=== PATIENT | female | born 1980 | race Two or more races ===

== ENCOUNTER 2022-07-03 05:42 | Inpatient (IN) | payer OTHER ==
[~2022-07-03] VITALS: Ht 162.6 cm; Wt 81.6 kg
[2022-07-03] MEDS ORDERED: PRENATAL TABLE1 EAC1 (08:03)
[2022-07-03] MEDS ORDERED: FOLIC ACID0.8 M1 (08:04)
[2022-07-03] MEDS ORDERED: IRON236 MG (08:04)
[2022-07-03] MEDS ORDERED: MONTELUKAST SOD10 MG (14:33)
[2022-07-03] MEDS ORDERED: PRENATAL VITAM1 EAC7 (14:33)
== END 2022-07-15 16:08 | disposition home or self-care (01) | DRG 768 ==
LOC: LDR 05:42 → ICU 05:42 → LDR 08:03 → O/R 07-04 10:51 → ICU 07-04 21:27 → MEDI 07-13 14:37
PROVIDERS: Surgery; ADMIT Obstetrics & Gynecology Obstetrics; ATTEND Obstetrics & Gynecology Obstetrics
PROC: 3E033VJ Introduction of Other Hormone into Peripheral Vein, Percutaneous Approach (ICD-10-PCS; 2022-07-03)
PROC: 3E0P7VZ Introduction of Hormone into Female Reproductive, Via Natural or Artificial Opening (ICD-10-PCS; 2022-07-03)
PROC: 4A1HXCZ Monitoring of Products of Conception, Cardiac Rate, External Approach (ICD-10-PCS; 2022-07-03)
PROC: 0UT70ZZ Resection of Bilateral Fallopian Tubes, Open Approach (ICD-10-PCS; 2022-07-04)
PROC: 4A033R1 Measurement of Arterial Saturation, Peripheral, Percutaneous Approach (ICD-10-PCS; 2022-07-04)
PROC: 10E0XZZ Delivery of Products of Conception, External Approach (ICD-10-PCS; principal; 2022-07-04 07:00)
PROC: 0UT90ZZ Resection of Uterus, Open Approach (ICD-10-PCS; 2022-07-04 07:00)
PROC: 0BH17EZ Insertion of Endotracheal Airway into Trachea, Via Natural or Artificial Opening (ICD-10-PCS; 2022-07-05)
PROC: 5A1955Z Respiratory Ventilation, Greater than 96 Consecutive Hours (ICD-10-PCS; 2022-07-05)
PROC: 4A12X4Z Monitoring of Cardiac Electrical Activity, External Approach (ICD-10-PCS; 2022-07-13)
DX: O43.2 Morbidly adherent placenta (principal); Z37.0 Single live birth; D62 Acute posthemorrhagic anemia; O72.1 Other immediate postpartum hemorrhage; N99.61 Intraoperative hemorrhage and hematoma of a genitourinary system organ or structure complicating a genitourinary system procedure; O67.8 Other intrapartum hemorrhage; O99.02 Anemia complicating childbirth; D72.828 Other elevated white blood cell count; Z3A.39 39 weeks gestation of pregnancy; Z53.1 Procedure and treatment not carried out because of patient's decision for reasons of belief and group pressure; Z20.822 Contact with and (suspected) exposure to COVID-19